=== PATIENT | male | born 1955 | race Caucasian/White ===

== ENCOUNTER 2023-08-19 13:55 | Inpatient (IN) | payer OTHER ==
[~2023-08-19] VITALS: Ht 182.9 cm; Wt 92.5 kg
[2023-08-19 15:24] LABS: ALANINE AMINOTRANSFERASE 105 U/L (12-78); ALBUMIN 3.5 g/dL (3.4-5.0); ALKALINE PHOSPHATASE 73 U/L (46-116); ASPARTATE AMINOTRANSFERASE 67 U/L (15-37); BILIRUBIN,DIRECT 0.2 mg/dL (0.0-0.2); BILIRUBIN,TOTAL 0.5 mg/dL (0.2-1.0); CALCIUM, SERUM 8.6 mg/dL (8.5-10.1); CARBON DIOXIDE 19 mmol/L (21-32); GLUCOSE 104 mg/dL (74-106); POTASSIUM 4.1 mmol/L (3.5-5.1); TOTAL PROTEIN, SERUM 7.2 g/dL (6.4-8.2); UREA NITROGEN, BLOOD 3 mg/dL (7-18)
[2023-08-19 15:25] LABS: BASOPHILS % (AUTO) 0.7 % (0.0-2.0); EOSINOPHILS # (AUTO) 0.2 K/uL (0.0-0.7); EOSINOPHILS % (AUTO) 3.6 % (0.0-6.0); HEMATOCRIT 35 % (39-51); HEMOGLOBIN 12.3 g/dL (13.5-17.5); LYMPHOCYTES # (AUTO) 0.6 K/uL (0.8-4.8); LYMPHOCYTES % (AUTO) 9.9 % (20.0-44.0); MEAN CORPUSCULAR HEMOGLOBIN 35 PG (26.0-33.0); MEAN CORPUSCULAR HGB CONC 36 g/dl (31.0-36.0); MEAN CORPUSCULAR VOLUME 100 fL (80-96); MONOCYTES # (AUTO) 0.6 K/uL (0.1-1.30); MONOCYTES % (AUTO) 9.1 % (2.0-12.0); NEUTROPHILS # (AUTO) 4.6 K/uL (1.8-8.9); NEUTROPHILS % (AUTO) 76.7 % (43.0-81.0); PLATELET COUNT (AUTO) 203 K/uL (150-450); RED BLOOD CELL COUNT(AUTO) 3.47 MIL/uL (4.5-6.0); RED CELL DISTRIBUTION WIDTH 15.6 % (11.5-15.0); WHITE BLOOD COUNT (AUTO) 6.1 K/uL (4.3-11.0)
[2023-08-19 15:27] LABS: SODIUM SERUM 111 mmol/L (136-145)
[2023-08-19 15:28] LABS: CHLORIDE 78 mmol/L (98-107)
[2023-08-19] MEDS ORDERED: IV NS 0.9% 1,000 ML BAG IV ONE (16:00)
[2023-08-19] MEDS ORDERED: CLON0.1T PO (16:13)
[2023-08-19] MEDS ORDERED: VARE1TAB PO (16:13)
[2023-08-19] MEDS ORDERED: CAND32TA20 PO (16:13)
[2023-08-19 19:55] LABS: APPEARANCE,URINE CLEAR (CLEAR); BILIRUBIN,URINE NEGATIVE (NEGATIVE); BLOOD, URINE NEGATIVE Ery/uL (NEGATIVE); COLOR,URINE YELLOW (YELLOW); KETONES,URINE 1+ mg/dL (NEGATIVE); LEUKOCYTE ESTERASE ,URINE NEGATIVE (NEGATIVE); NITRITE, URINE NEGATIVE (NEGATIVE); PROTEIN,URINE NEGATIVE (NEGATIVE); UGLUCOSE NEGATIVE (NEGATIVE); UROBILINOGEN,URINE 0.2 EU/dL (0.2)
[2023-08-19 20:00] VITALS: BP 115/65; TEMP 98.4; O2SAT 98
[2023-08-19] MEDS ORDERED: IV NS 0.9% 1,000 ML IV PRN (20:00)
[2023-08-19] MEDS ORDERED: MAG HYDROX/AL HYDROX/SIMETH 30 ML UDC PO PRN (20:00)
[2023-08-19] MEDS ORDERED: MAGNESIUM HYDROXIDE 30 ML UDC PO PRN (20:00)
[2023-08-19] MEDS ORDERED: ACETAMINOPHEN 325 MG TABLET PO PRN (20:00)
[2023-08-19] MEDS ORDERED: Z GUARD REMEDY 4 OZ OINT TP PRN (20:00)
[2023-08-19] MEDS ORDERED: ZOLPIDEM TARTRATE 5 MG TABLET PO PRN (20:00)
[2023-08-19] MEDS ORDERED: ONDANSETRON HCL/PF 4 MG/2 ML VIAL IVP PRN (20:00)
[2023-08-19 20:04] LABS: ADD URINE CULTURE NO; BACTERIA,URINE None seen /HPF (None Seen); RBC,URINE 0-2 /HPF (0-2); SQUAMOUS EPITHELIAL CELL,UR 0-2 /HPF (None Seen); WBC,URINE 0-2 /HPF (0-3)
[2023-08-19 23:01] VITALS: BP 157/84; TEMP 97.9; O2SAT 98
[2023-08-20] VITALS: BP 185/76; TEMP 97.3; O2SAT 98
[2023-08-20 00:46] LABS: CALCIUM, SERUM 8.4 mg/dL (8.5-10.1); CREATININE 0.9 mg/dL (0.6-1.3); POTASSIUM 4.1 mmol/L (3.5-5.1)
[2023-08-20] MEDS: CLONIDINE HCL 0.1 MG TABLET PO PRN (01:46)
[2023-08-20 04:00] VITALS: BP 133/60; TEMP 98.1; O2SAT 98
[2023-08-20 06:29] LABS: BASOPHILS % (AUTO) 0.6 % (0.0-2.0); EOSINOPHILS # (AUTO) 0.3 K/uL (0.0-0.7); EOSINOPHILS % (AUTO) 6.8 % (0.0-6.0); HEMATOCRIT 31 % (39-51); LYMPHOCYTES # (AUTO) 0.7 K/uL (0.8-4.8); MEAN CORPUSCULAR HEMOGLOBIN 35 PG (26.0-33.0); MEAN CORPUSCULAR HGB CONC 36 g/dl (31.0-36.0); MEAN CORPUSCULAR VOLUME 99 fL (80-96); MONOCYTES # (AUTO) 0.5 K/uL (0.1-1.30); MONOCYTES % (AUTO) 10.9 % (2.0-12.0); NEUTROPHILS # (AUTO) 3.3 K/uL (1.8-8.9); NEUTROPHILS % (AUTO) 66.7 % (43.0-81.0); PLATELET COUNT (AUTO) 188 K/uL (150-450); RED BLOOD CELL COUNT(AUTO) 3.11 MIL/uL (4.5-6.0); RED CELL DISTRIBUTION WIDTH 15.4 % (11.5-15.0)
[2023-08-20 07:00] LABS: CALCIUM, SERUM 8.2 mg/dL (8.5-10.1); PHOSPHORUS 3.1 mg/dL (2.5-4.9); POTASSIUM 4.2 mmol/L (3.5-5.1)
[2023-08-20 07:42] LABS: PHOSPHORUS 3.1 mg/dL (2.5-4.9)
[2023-08-20 07:50] LABS: THYROID STIMULATING HORMONE 4.201 uIU/mL (0.358-3.74); URIC ACID 4.1 mg/dL (2.6-7.2)
[2023-08-20] MEDS: LOSARTAN POTASSIUM 50 MG TABLET PO SCH (08:43)
[2023-08-20] MEDS: IV Sodium Chloride 3% 500 ML 500 ML IV SCH ×2 (10:04→15:00)
[2023-08-20 11:47] LABS: CALCIUM, SERUM 8.1 mg/dL (8.5-10.1); CREATININE 1.1 mg/dL (0.6-1.3)
[2023-08-20 15:06] LABS: CALCIUM, SERUM 8.1 mg/dL (8.5-10.1); CREATININE 1.1 mg/dL (0.6-1.3)
[2023-08-20] MEDS: CLOTRIMAZOLE 1% 15 GM TUBE TP SCH (17:00)
[2023-08-20] MEDS ORDERED: Folic acid 1 MG in IV D5W 50 ML IV SCH (18:00)
[2023-08-20] MEDS ORDERED: Thiamine 100 MG in IV D5W 50 ML IV SCH (18:00)
[2023-08-20] MEDS ORDERED: LORAZEPAM INJ 2 MG/ML VIAL IV PRN (18:00)
[2023-08-20 18:43] LABS: CALCIUM, SERUM 8.1 mg/dL (8.5-10.1); CREATININE 1.3 mg/dL (0.6-1.3); POTASSIUM 4.2 mmol/L (3.5-5.1)
[2023-08-20] MEDS ORDERED: IV Sodium Chloride 3% 500 ML 500 ML IV ONE ×2 (19:30→21:00)
[2023-08-20 20:00] VITALS: BP 115/65; TEMP 98.4; O2SAT 98
[2023-08-20 21:55] LABS: CALCIUM, SERUM 8.2 mg/dL (8.5-10.1); CREATININE 1.2 mg/dL (0.6-1.3); POTASSIUM 4.3 mmol/L (3.5-5.1)
[2023-08-21] VITALS (7 sets, daily range): BP systolic 129–169; BP diastolic 55–71; TEMP 97.5–98.6; O2SAT 98–100
[2023-08-21 07:17] LABS: BASOPHILS # (AUTO) 0.1 K/uL (0.0-0.2); BASOPHILS % (AUTO) 1.2 % (0.0-2.0); EOSINOPHILS # (AUTO) 0.5 K/uL (0.0-0.7); EOSINOPHILS % (AUTO) 8.8 % (0.0-6.0); HEMATOCRIT 33 % (39-51); HEMOGLOBIN 11.5 g/dL (13.5-17.5); LYMPHOCYTES # (AUTO) 0.7 K/uL (0.8-4.8); LYMPHOCYTES % (AUTO) 12.4 % (20.0-44.0); MEAN CORPUSCULAR HEMOGLOBIN 35 PG (26.0-33.0); MEAN CORPUSCULAR HGB CONC 35 g/dl (31.0-36.0); MEAN CORPUSCULAR VOLUME 100 fL (80-96); MONOCYTES # (AUTO) 0.5 K/uL (0.1-1.30); MONOCYTES % (AUTO) 10.1 % (2.0-12.0); NEUTROPHILS # (AUTO) 3.6 K/uL (1.8-8.9); NEUTROPHILS % (AUTO) 67.5 % (43.0-81.0); PLATELET COUNT (AUTO) 186 K/uL (150-450); RED BLOOD CELL COUNT(AUTO) 3.25 MIL/uL (4.5-6.0); RED CELL DISTRIBUTION WIDTH 15.3 % (11.5-15.0); WHITE BLOOD COUNT (AUTO) 5.4 K/uL (4.3-11.0)
[2023-08-21 07:34] LABS: ALBUMIN 3.2 g/dL (3.4-5.0); BILIRUBIN,TOTAL 0.6 mg/dL (0.2-1.0); CALCIUM, SERUM 8.6 mg/dL (8.5-10.1); CREATININE 1.1 mg/dL (0.6-1.3); MAGNESIUM 2.3 mg/dL (1.8-2.4); PHOSPHORUS 3.7 mg/dL (2.5-4.9); TOTAL PROTEIN, SERUM 6.6 g/dL (6.4-8.2)
[2023-08-21] MEDS: SODIUM CHLORIDE 1000 MG TABLET PO SCH ×4 (08:33→20:45)
[2023-08-21] MEDS: LOSARTAN POTASSIUM 50 MG TABLET PO SCH (08:33)
[2023-08-21] MEDS: CLOTRIMAZOLE 1% 15 GM TUBE TP SCH ×2 (10:17→16:13)
[2023-08-21] MEDS: THIAMINE HCL 100 MG TABLET PO SCH (17:02)
[2023-08-21] MEDS ORDERED: THIAMINE HCL 100 MG TABLET PO SCH (18:00)
[2023-08-22 04:00] VITALS: BP 130/57; TEMP 98.2; O2SAT 100
[2023-08-22 06:25] LABS: BASOPHILS # (AUTO) 0.1 K/uL (0.0-0.2); BASOPHILS % (AUTO) 1.1 % (0.0-2.0); EOSINOPHILS # (AUTO) 0.5 K/uL (0.0-0.7); HEMATOCRIT 31 % (39-51); LYMPHOCYTES # (AUTO) 0.8 K/uL (0.8-4.8); LYMPHOCYTES % (AUTO) 13.2 % (20.0-44.0); MEAN CORPUSCULAR HEMOGLOBIN 35 PG (26.0-33.0); MEAN CORPUSCULAR HGB CONC 35 g/dl (31.0-36.0); MEAN CORPUSCULAR VOLUME 100 fL (80-96); MONOCYTES # (AUTO) 0.7 K/uL (0.1-1.30); MONOCYTES % (AUTO) 12.4 % (2.0-12.0); NEUTROPHILS # (AUTO) 3.7 K/uL (1.8-8.9); NEUTROPHILS % (AUTO) 65.3 % (43.0-81.0); PLATELET COUNT (AUTO) 177 K/uL (150-450); RED BLOOD CELL COUNT(AUTO) 3.12 MIL/uL (4.5-6.0); RED CELL DISTRIBUTION WIDTH 15.4 % (11.5-15.0); WHITE BLOOD COUNT (AUTO) 5.7 K/uL (4.3-11.0)
[2023-08-22 06:44] LABS: CALCIUM, SERUM 8.6 mg/dL (8.5-10.1); CREATININE 1.1 mg/dL (0.6-1.3); MAGNESIUM 2.3 mg/dL (1.8-2.4); PHOSPHORUS 3.4 mg/dL (2.5-4.9); POTASSIUM 3.9 mmol/L (3.5-5.1)
[2023-08-22 06:55] LABS: ALBUMIN 3.1 g/dL (3.4-5.0); BILIRUBIN,DIRECT 0.2 mg/dL (0.0-0.2); BILIRUBIN,TOTAL 0.5 mg/dL (0.2-1.0); TOTAL PROTEIN, SERUM 6.5 g/dL (6.4-8.2)
[2023-08-22 08:00] VITALS: BP 163/54; TEMP 98.1; O2SAT 98
[2023-08-22] MEDS: SODIUM CHLORIDE 1000 MG TABLET PO SCH ×4 (09:23→20:56)
[2023-08-22] MEDS: THIAMINE HCL 100 MG TABLET PO SCH (09:23)
[2023-08-22] MEDS: LOSARTAN POTASSIUM 50 MG TABLET PO SCH (09:23)
[2023-08-22] MEDS: CLOTRIMAZOLE 1% 15 GM TUBE TP SCH ×2 (09:24→16:44)
[2023-08-22 12:00] VITALS: BP 156/82; TEMP 97.5; O2SAT 98
[2023-08-22 12:16] LABS: CALCIUM, SERUM 8.8 mg/dL (8.5-10.1); CREATININE 1.1 mg/dL (0.6-1.3); POTASSIUM 4.2 mmol/L (3.5-5.1)
[2023-08-22] MEDS ORDERED: IV Sodium Chloride 3% 500 ML 500 ML IV SCH (14:00)
[2023-08-22 16:00] VITALS: BP 153/61; TEMP 98.6; O2SAT 99
[2023-08-22 20:00] VITALS: BP 138/50; TEMP 98.2; O2SAT 97
[2023-08-23] VITALS: BP 161/54; TEMP 98.3; O2SAT 97
[2023-08-23 04:00] VITALS: BP 158/79; TEMP 98.2; O2SAT 99
[2023-08-23 06:42] LABS: BASOPHILS # (AUTO) 0.1 K/uL (0.0-0.2); BASOPHILS % (AUTO) 1.1 % (0.0-2.0); EOSINOPHILS # (AUTO) 0.5 K/uL (0.0-0.7); EOSINOPHILS % (AUTO) 10.4 % (0.0-6.0); HEMATOCRIT 31 % (39-51); HEMOGLOBIN 11.2 g/dL (13.5-17.5); LYMPHOCYTES # (AUTO) 0.6 K/uL (0.8-4.8); LYMPHOCYTES % (AUTO) 10.6 % (20.0-44.0); MEAN CORPUSCULAR HEMOGLOBIN 36 PG (26.0-33.0); MEAN CORPUSCULAR HGB CONC 36 g/dl (31.0-36.0); MEAN CORPUSCULAR VOLUME 101 fL (80-96); MONOCYTES # (AUTO) 0.7 K/uL (0.1-1.30); NEUTROPHILS # (AUTO) 3.3 K/uL (1.8-8.9); NEUTROPHILS % (AUTO) 63.9 % (43.0-81.0); PLATELET COUNT (AUTO) 178 K/uL (150-450); RED BLOOD CELL COUNT(AUTO) 3.09 MIL/uL (4.5-6.0); RED CELL DISTRIBUTION WIDTH 15.6 % (11.5-15.0); WHITE BLOOD COUNT (AUTO) 5.2 K/uL (4.3-11.0)
[2023-08-23 07:03] LABS: ALBUMIN 3.1 g/dL (3.4-5.0); BILIRUBIN,TOTAL 0.5 mg/dL (0.2-1.0); CALCIUM, SERUM 8.8 mg/dL (8.5-10.1); CREATININE 1.1 mg/dL (0.6-1.3); MAGNESIUM 2.1 mg/dL (1.8-2.4); PHOSPHORUS 4.4 mg/dL (2.5-4.9); POTASSIUM 4.2 mmol/L (3.5-5.1); TOTAL PROTEIN, SERUM 6.8 g/dL (6.4-8.2)
[2023-08-23 07:17] LABS: THYROID STIMULATING HORMONE 3.346 uIU/mL (0.358-3.74); URIC ACID 3.6 mg/dL (2.6-7.2)
[2023-08-23 08:00] VITALS: BP 175/63; TEMP 98; O2SAT 94
[2023-08-23] MEDS: LOSARTAN POTASSIUM 50 MG TABLET PO SCH (09:01)
[2023-08-23] MEDS: CLOTRIMAZOLE 1% 15 GM TUBE TP SCH ×2 (09:02→17:32)
[2023-08-23] MEDS: SODIUM CHLORIDE 1000 MG TABLET PO SCH ×4 (09:02→21:48)
[2023-08-23] MEDS: THIAMINE HCL 100 MG TABLET PO SCH (09:02)
[2023-08-23 12:00] VITALS: BP 178/91; TEMP 97.9; O2SAT 98
[2023-08-23] MEDS: CLONIDINE HCL 0.1 MG TABLET PO PRN (12:43)
[2023-08-23 16:00] VITALS: BP 158/68; TEMP 98.8; O2SAT 98
[2023-08-23] MEDS: HYDROCORTISONE 2.5% CREAM 28.4 GM TUBE TP SCH (17:32)
[2023-08-23 20:00] VITALS: BP 155/56; TEMP 98.5; O2SAT 98
[2023-08-24] VITALS (7 sets, daily range): BP systolic 142–177; BP diastolic 60–76; TEMP 97.7–98.7; O2SAT 98
[2023-08-24] MEDS: CLONIDINE HCL 0.1 MG TABLET PO PRN (04:41)
[2023-08-24 07:45] LABS: BASOPHILS % (AUTO) 0.9 % (0.0-2.0); EOSINOPHILS # (AUTO) 0.6 K/uL (0.0-0.7); EOSINOPHILS % (AUTO) 12.1 % (0.0-6.0); HEMATOCRIT 31 % (39-51); HEMOGLOBIN 11.1 g/dL (13.5-17.5); LYMPHOCYTES # (AUTO) 0.7 K/uL (0.8-4.8); LYMPHOCYTES % (AUTO) 14.7 % (20.0-44.0); MEAN CORPUSCULAR HEMOGLOBIN 36 PG (26.0-33.0); MEAN CORPUSCULAR HGB CONC 35 g/dl (31.0-36.0); MEAN CORPUSCULAR VOLUME 102 fL (80-96); MONOCYTES # (AUTO) 0.6 K/uL (0.1-1.30); MONOCYTES % (AUTO) 13.4 % (2.0-12.0); NEUTROPHILS # (AUTO) 2.7 K/uL (1.8-8.9); NEUTROPHILS % (AUTO) 58.9 % (43.0-81.0); PLATELET COUNT (AUTO) 172 K/uL (150-450); RED BLOOD CELL COUNT(AUTO) 3.08 MIL/uL (4.5-6.0); RED CELL DISTRIBUTION WIDTH 15.7 % (11.5-15.0); WHITE BLOOD COUNT (AUTO) 4.6 K/uL (4.3-11.0)
[2023-08-24 07:57] LABS: CALCIUM, SERUM 9.2 mg/dL (8.5-10.1); CREATININE 1.2 mg/dL (0.6-1.3); POTASSIUM 4.3 mmol/L (3.5-5.1)
[2023-08-24] MEDS: THIAMINE HCL 100 MG TABLET PO SCH (08:48)
[2023-08-24] MEDS: SODIUM CHLORIDE 1000 MG TABLET PO SCH ×4 (08:48→20:20)
[2023-08-24] MEDS: LOSARTAN POTASSIUM 50 MG TABLET PO SCH (08:48)
[2023-08-24] MEDS: HYDROCORTISONE 2.5% CREAM 28.4 GM TUBE TP SCH ×2 (08:50→16:12)
[2023-08-24] MEDS: CLOTRIMAZOLE 1% 15 GM TUBE TP SCH ×2 (08:50→16:11)
[2023-08-24] MEDS: DEMECLOCYCLINE HCL 150 MG TABLET PO SCH ×2 (11:03→20:19)
[2023-08-25] VITALS: BP 150/67; TEMP 98.6; O2SAT 100
[2023-08-25 04:00] VITALS: BP 140/67; TEMP 98.5; O2SAT 100
[2023-08-25 07:21] LABS: CALCIUM, SERUM 9.1 mg/dL (8.5-10.1); CREATININE 1.2 mg/dL (0.6-1.3); POTASSIUM 4.5 mmol/L (3.5-5.1)
[2023-08-25 08:00] VITALS: BP 167/65; TEMP 97.9; O2SAT 99
[2023-08-25] MEDS: SODIUM CHLORIDE 1000 MG TABLET PO SCH ×4 (09:58→21:43)
[2023-08-25] MEDS: THIAMINE HCL 100 MG TABLET PO SCH (09:58)
[2023-08-25] MEDS: LOSARTAN POTASSIUM 50 MG TABLET PO SCH (09:59)
[2023-08-25] MEDS: DEMECLOCYCLINE HCL 150 MG TABLET PO SCH ×2 (10:00→21:43)
[2023-08-25] MEDS: CLOTRIMAZOLE 1% 15 GM TUBE TP SCH ×2 (10:02→17:03)
[2023-08-25] MEDS: HYDROCORTISONE 2.5% CREAM 28.4 GM TUBE TP SCH ×2 (10:02→17:02)
[2023-08-25 12:00] VITALS: BP 157/68; TEMP 97.8; O2SAT 99
[2023-08-25 16:00] VITALS: BP 159/63; TEMP 97.6; O2SAT 98
[2023-08-25 20:00] VITALS: BP_SYST 152; BP_SYST 162; BP_DIAS 61; TEMP 98.9; O2SAT 96
[2023-08-26] VITALS: BP 162/61; TEMP 98.4; O2SAT 96
[2023-08-26 04:00] VITALS: BP 171/57; TEMP 98.4; O2SAT 96
[2023-08-26 05:50] LABS: BASOPHILS # (AUTO) 0.1 K/uL (0.0-0.2); BASOPHILS % (AUTO) 2.1 % (0.0-2.0); EOSINOPHILS # (AUTO) 0.5 K/uL (0.0-0.7); EOSINOPHILS % (AUTO) 11.9 % (0.0-6.0); HEMATOCRIT 32 % (39-51); HEMOGLOBIN 11.1 g/dL (13.5-17.5); LYMPHOCYTES # (AUTO) 0.6 K/uL (0.8-4.8); LYMPHOCYTES % (AUTO) 13.9 % (20.0-44.0); MEAN CORPUSCULAR HEMOGLOBIN 36 PG (26.0-33.0); MEAN CORPUSCULAR HGB CONC 35 g/dl (31.0-36.0); MEAN CORPUSCULAR VOLUME 103 fL (80-96); MONOCYTES # (AUTO) 0.5 K/uL (0.1-1.30); NEUTROPHILS # (AUTO) 2.7 K/uL (1.8-8.9); NEUTROPHILS % (AUTO) 61.1 % (43.0-81.0); PLATELET COUNT (AUTO) 199 K/uL (150-450); RED CELL DISTRIBUTION WIDTH 15.6 % (11.5-15.0); WHITE BLOOD COUNT (AUTO) 4.4 K/uL (4.3-11.0)
[2023-08-26 06:05] LABS: CREATININE 1.3 mg/dL (0.6-1.3); MAGNESIUM 2.1 mg/dL (1.8-2.4); POTASSIUM 4.4 mmol/L (3.5-5.1)
[2023-08-26] MEDS: DEMECLOCYCLINE HCL 150 MG TABLET PO SCH (08:56)
[2023-08-26] MEDS: THIAMINE HCL 100 MG TABLET PO SCH (08:58)
[2023-08-26] MEDS: SODIUM CHLORIDE 1000 MG TABLET PO SCH ×2 (08:59→12:34)
[2023-08-26] MEDS: LOSARTAN POTASSIUM 50 MG TABLET PO SCH (08:59)
[2023-08-26] MEDS: CLOTRIMAZOLE 1% 15 GM TUBE TP SCH (08:59)
[2023-08-26] MEDS: HYDROCORTISONE 2.5% CREAM 28.4 GM TUBE TP SCH (09:00)
[2023-08-26 10:00] VITALS: BP 184/68; TEMP 97.7; O2SAT 97
[2023-08-26] MEDS ORDERED: SODI100037 PO (13:08)
[2023-08-26] MEDS ORDERED: TRIA80OI TP (13:47)
[2023-08-26] MEDS ORDERED: CHLO25CA22 PO (13:47)
== END 2023-08-26 18:10 | disposition home or self-care (01) | DRG 644 ==
LOC: ER 13:58 → TELE1 19:24 → MEDSG1 08-25 15:23
PROVIDERS: ADMIT Nurse Practitioner Acute Care; ATTEND Nurse Practitioner Acute Care
DX: E22.2 Syndrome of inappropriate secretion of antidiuretic hormone (principal); F10.988 Alcohol use, unspecified with other alcohol-induced disorder; M19.90 Unspecified osteoarthritis, unspecified site; I10 Essential (primary) hypertension; Y90.0 Blood alcohol level of less than 20 mg/100 ml; S60.511A Abrasion of right hand, initial encounter; X58.XXXA Exposure to other specified factors, initial encounter; Y92.9 Unspecified place or not applicable; L60.3 Nail dystrophy; Z79.899 Other long term (current) drug therapy; W10.9XXA Fall (on) (from) unspecified stairs and steps, initial encounter; Y92.009 Unspecified place in unspecified non-institutional (private) residence as the place of occurrence of the external cause; Z91.81 History of falling; R74.01 Elevation of levels of liver transaminase levels; R26.9 Unspecified abnormalities of gait and mobility; L30.9 Dermatitis, unspecified; E83.51 Hypocalcemia; D64.9 Anemia, unspecified; L98.9 Disorder of the skin and subcutaneous tissue, unspecified; R94.6 Abnormal results of thyroid function studies
CPT/HCPCS: 36415; 70450-TC; 71045-TC; 72125-TC; 73130-TC; 80048-TC; 80053-TC; 80076-TC; 81001; 82533; 83735-TC; 83935-TC; 84100-TC; 84295-TC; 84300-TC; 84436-TC; 84443-TC; 84484-TC; 84550-TC; 85025-TC; 97110-TC; 97112-TC; 97116-TC; 97530-TC; A4223; A6403; G0378; G0480; J3411; J3490; J7030; J7060